=== PATIENT | male | born 1965 | race Caucasian/White ===

== ENCOUNTER 2018-05-05 20:08 | Inpatient (IN) ==
--- NOTE | 2018-05-05 20:35 | ED ---
HPI General Chief Complaint: Stroke Alert Stated Complaint: Facial Numbness/Trouble Walking/Lft Facial Swellin Time Seen by Provider: 05/05/18 20:25 Source: patient Mode of arrival: ambulatory Limitations: no limitations History of Present Illness HPI Narrative: 52-year-old male presents to the emergency department by private transportation for complaint of new onset left facial droop left arm weakness and ataxia of gait. According the patient he went to bed feeling well last evening around 9 or 9:30 PM having no similar complaints. Patient awakened approximate 8 AM this morning and noticed that he had some mild weakness of the left upper extremity and some difficulty with his balance, "running into things ", which is unusual for him. Patient denies any injury or fall. Patient does not recall any weakness of the left lower extremity or right lower extremity. Patient is diabetic and has noted his blood sugars to be elevated into the 320 range today. Patient has been compliant with his medications which includes Plavix and blood pressure cholesterol medication. Patient states he takes Plavix but does not know the indication. Patient also has stage III kidney disease. Patient states he has kidney abnormality. Patient states that he also has a indwelling nerve stimulator from severe arthritis. Patient has had no recent febrile illness denies chest pain palpitations near syncope syncope nausea vomiting visual disturbance headache altered mentation or difficulty with his speech. Patient is visiting from out of state. Patient has never been seen in this hospital system before. Patient has been compliant with his medications reportedly. No recent alcohol ingestion. Patient denies history of irregular heartbeat/atrial fibrillation. Patient is allergic to aspirin. Onset (ago): hour(s) Time: 08:00 Last Observed Normal: 21:31 Location: Reports left face, left arm and ataxia History of same: No Severity: mild Quality: Reports weak Relieving factors: none Exacerbating factors: none Context: Reports other (noted upon awakening 8 am this morning 'normal last night at bedtime 9-9:30 PM') On Anticoagulants: Yes (plvix, allergic to aspirin) Associated symptoms: Reports weakness (LUE); Denies confusion, chest pain, cough , diaphoresis, fever/chills, headaches, loss of appetite, malaise, nausea/ vomiting, vertigo, seizures, shortness of breath and syncope Treatments Prior to Arrival: Reports none; Denies Aspirin (allergic) Related Data Home Medications Medication Instructions Recorded Confirmed atorvastatin 80 mg PO DAILY 05/05/18 05/05/18 esomeprazole magnesium 40 mg PO DAILY 05/05/18 05/05/18 gabapentin 600 mg PO BID 05/05/18 05/05/18 losartan 50 mg PO DAILY 05/05/18 05/05/18 nortriptyline 25 mg PO BID 05/05/18 05/05/18 paroxetine HCl 20 mg PO DAILY 05/05/18 05/05/18 sertraline 50 mg PO DAILY 05/05/18 05/05/18 topiramate [Topamax] 50 mg PO BID 05/05/18 05/05/18 Allergies Allergy/AdvReac Type Severity Reaction Status Date / Time aspirin Allergy Severe Hives Verified 05/05/18 20:27 Penicillins Allergy Hives Verified 05/05/18 20:29 Sulfa (Sulfonamide Allergy Hives Verified 05/05/18 20:29 Antibiotics) alprazolam [From Xanax] AdvReac Agitation Verified 05/05/18 20:29 Review of Systems ROS: all other systems reviewed are negative PMFSH History History Provided By: Patient (Diabetes, hypertension, stage III kidney disease, dyslipidemia, nerve stimulator secondary to chronic arthritis) Social History Social History Substance History: No History of Abuse Smoking Status: Never smoker How Often Do You Have a Drink Containing Alcohol: Never Recent Travel in [facility] within the Last 8 Weeks: No Recent Out of Country Travel within the Last 8 Weeks: No Exam Narrative Exam Narrative: GENERAL: Well-developed well-nourished male no acute distress no respiratory distress mentation intact GCS 15 blood pressure 113/72 bedside glucose 494 SKIN: Focused skin assessment warm/dry. HEAD: Atraumatic. Normocephalic. EYES: Pupils equal and round. No scleral icterus. No injection or drainage. ENT: No nasal bleeding or discharge. Mucous membranes pink and moist. Airway is patent tongue is midline. NECK: Trachea midline. No JVD. No carotid bruits to auscultation CARDIOVASCULAR: Regular rate and rhythm. No murmur appreciated. RESPIRATORY: No accessory muscle use. Clear to auscultation. Breath sounds equal bilaterally. GASTROINTESTINAL: Abdomen soft, non-tender, nondistended. Hepatic and splenic margins not palpable. MUSCULOSKELETAL: No obvious deformities. No clubbing. No cyanosis. No edema. NEUROLOGICAL: Awake and alert. GCS 15 no obvious cranial nerve deficits except for left facial droop. Motor grossly within normal limits left upper extremity 4/5 motor strength otherwise right upper extremity bilateral extremities 5/5 motor strength. Sensory exam intact to light touch bilaterally. No pronator drift. Normal speech. PSYCHIATRIC: Appropriate mood and affect; insight and judgment normal. Course Consultations Consultation #1: stroke alert called and discussed with Dr Earl --if able to tolerate CTA w CKD ok otherwise will proceed with stat MRA nikolski of Cramer/ neck Initial Documented Vital Signs Temperature 98.2 F 05/05/18 20:34 Pulse Rate 74 05/05/18 20:34 Respiratory Rate 18 05/05/18 20:34 Blood Pressure 113/70 05/05/18 20:34 Pulse Oximetry 98 05/05/18 20:34 Last Documented Vital Signs Temperature 98.2 F 05/05/18 20:34 Pulse Rate 63 05/05/18 21:48 Respiratory Rate 18 05/05/18 21:48 Blood Pressure 133/70 05/05/18 21:48 Pulse Oximetry 100 05/05/18 21:48 NIH Stroke Scale NIH Stroke Scale Level of Consciousness: 0-Alert Orientation Questions: 0-Answers both correct Responds to Commands: 0-Both tasks correct Gaze Eye Movement: 0-Horizontal movement WNL Visual Quintero: 0-No visual field defect Facial Movement: 1-Minor facial palsy (left facial droop) Motor Functions Arm LEFT: 1-Drift before 10 seconds Motor Functions Arm RIGHT: 0-No drift Motor Functions Leg LEFT: 0-No drift Motor Functions Leg RIGHT: 0-No drift Limb Ataxia: 0-No ataxia Sensory Loss: 0-No sensory loss Best Language: 0-Normal Articulation: 0-Normal Extinction or Inattention Sensory: 0-Absent Total: 2 Medical Decision Making MDM Narrative Medical decision making narrative: @ 20:18 Stroke alert called as symptom onset still within 24 h window of onset (well outside tpa window, not candidate); @ 20 :[address] Earl @ 21:[address] 21:[address] Ealr; CTA pending --may receive SQ heparin 5000 u bid on plavix; recommends MRI in the AM At 9:20 PM family at bedside mother states that she noticed change in patient's appearance and balance disturbance today since 9:30 AM noting that she would have to assist him with ambulation at times. This was noted while patient was on road trip from [place] since yesterday. Brother who is also at bedside saw him for the first time this evening at 7 PM and noticed that he had facial droop and balance disturbance which is also new for him. NIHSS: 2 EKG: Normal sinus rhythm rate [address] elevation injury pattern or ectopy noted CT brain noncontrast: Negative per reading radiologist CTA brain noncontrast no acute process no proximal thrombus CTA carotids no acute abnormality Chest x-ray:No acute process CBC with automated differential within normal limits Metabolic panel remarkable for bicarb of 23 normal anion gap renal insufficiency with creatinine of 2.0 GFR 35 (in view of receiving Visipaque contrast patient was given bolus of 500 cc as well as had received bolus of 250 cc normal saline while in the CT due to initial blood pressure 113 mmHg and ongoing maintenance fluids at 70 cc/h) glucose 498; hyperglycemia addressed with a bolus of normal saline 1 L as well as insulin 10 units IV x1 with blood sugar monitoring every hour x2. Troponin I less than 0.02, not elevated; CK 83 not elevated Call placed to medicine service, [facility] , Dr Zayas Medical Screen Exam Complete: Yes Emergency Medical Condition: Yes Differential Diagnosis Differential Diagnosis: TIA CVA Grace's palsy arrhythmia cervical radiculopathy uncontrolled diabetes DKA dehydration UTI sepsis Medical Records Medical records reviewed: Yes I reviewed the patient's medical records. none prior Lab Data Lab results reviewed: Yes I reviewed the patient's lab results. Result diagrams: 05/05/18 20:25 05/05/18 20:25 Lab Results 05/05/18 05/05/18 05/05/18 Range/Units 20:21 20:25 20:25 CBC w Diff Auto diff final WBC 10.2 (4.0-11.0) th/mm3 RBC 5.07 (4.50-5.90) mil/mm3 Hgb 15.1 (13.0-17.0) gm/dL Hct 47.8 (39.0-51.0) % MCV 94.2 (80.0-100.0) fL MCH 29.8 (27.0-34.0) pg MCHC 31.6 L (32.0-36.0) % RDW 13.8 (11.6-17.2) % Plt Count 209 (150-450) th/mm3 MPV 10.0 (7.0-11.0) fL Neut % (Auto) 77.1 H (16.0-70.0) % Lymph % (Auto) 14.9 (9.0-44.0) % [place] % (Auto) 7.3 (0.0-8.0) % Eos % (Auto) 0.1 (0.0-4.0) % Baso % (Auto) 0.6 (0.0-2.0) % Neut # (Auto) 7.9 H (1.8-7.7) th/mm3 Lymph # (Auto) 1.5 (1.0-4.8) th/mm3 [place] # (Auto) 0.7 (0.0-0.9) th/mm3 Eos # (Auto) 0.0 (0.0-0.4) th/mm3 Baso # (Auto) 0.1 (0.0-0.2) th/mm3 WBC Differential . Differential Comment . PT (9.8-11.6) sec INR Ratio APTT (23.4-31.7) sec Fibrinogen (227-377) mg/dL Sodium (136-145) meq/L Potassium (3.5-5.1) meq/L Chloride (98-107) meq/L Carbon Dioxide (21.0-32.0) meq/L Anion Gap (5-15) meq/L BUN (7-18) mg/dL Creatinine Cancelled Estimated GFR Cancelled Random Glucose (74-106) mg/dL Calcium (8.5-10.1) mg/dL Total Creatine Kinase (39-308) U/L Troponin I (0.02-0.05) ng/mL Blood Type O Positive 05/05/18 05/05/18 05/05/18 Range/Units 20:25 20:25 20:25 CBC w Diff WBC (4.0-11.0) th/mm3 RBC (4.50-5.90) mil/mm3 Hgb (13.0-17.0) gm/dL Hct (39.0-51.0) % MCV (80.0-100.0) fL MCH (27.0-34.0) pg MCHC (32.0-36.0) % RDW (11.6-17.2) % Plt Count (150-450) th/mm3 MPV (7.0-11.0) fL Neut % (Auto) (16.0-70.0) % Lymph % (Auto) (9.0-44.0) % [place] % (Auto) (0.0-8.0) % Eos % (Auto) (0.0-4.0) % Baso % (Auto) (0.0-2.0) % Neut # (Auto) (1.8-7.7) th/mm3 Lymph # (Auto) (1.0-4.8) th/mm3 [place] # (Auto) (0.0-0.9) th/mm3 Eos # (Auto) (0.0-0.4) th/mm3 Baso # (Auto) (0.0-0.2) th/mm3 WBC Differential Differential Comment PT 10.0 (9.8-11.6) sec INR 1.0 Ratio APTT 29.1 (23.4-31.7) sec Fibrinogen 630 H (227-377) mg/dL Sodium 133 L (136-145) meq/L Potassium 3.6 (3.5-5.1) meq/L Chloride 101 (98-107) meq/L Carbon Dioxide 23.0 (21.0-32.0) meq/L Anion Gap 9 (5-15) meq/L BUN 14 (7-18) mg/dL Creatinine 2.00 H Estimated GFR 35 L Random Glucose 498 H* (74-106) mg/dL Calcium 7.9 L (8.5-10.1) mg/dL Total Creatine Kinase 83 (39-308) U/L Troponin I Less than 0.02 L (0.02-0.05) ng/mL Blood Type Imaging Data Radiologist's impression: Chest X-Ray 05/05/18 20:26 CONCLUSION: 1. No acute cardiopulmonary disease. Head CT 05/05/18 20:26 CONCLUSION: 1. No acute intracranial abnormality. Report was called by Dr. Barnett to Dr. Bland at 9:09 PM.] Head CTA 05/05/18 20:26 CONCLUSION: 1. Negative CTA of the head. Specifically, no evidence for large vessel occlusion. Report was called by Dr. Barnett to Dr. Earl at 9:26 PM.] Neck CTA 05/05/18 20:26 CONCLUSION: 1. No significant carotid or vertebral artery flow limiting lesion. ECG Data EKG Prior to Arrival: No Attestation: I personally reviewed and interpreted this ECG as follows: (EKG normal sinus rhythm rate [address] elevation injury pattern or ectopy noted ) Discharge Plan Discharge Disposition Patient Disposition: ED Admit(ED Internal Use Only) Discharge Condition Condition: Stable Discharge Details Diagnosis: Weakness, CVA (cerebral vascular accident), Type 2 diabetes mellitus with hyperglycemia, Chronic kidney disease (CKD) Physicians Team ED Provider: Temitope Bland Primary Care Provider: Primary Care Leah Fernandez Other Providers: Santosh Miranda Rxs /Orders / Referrals /Forms Prescriptions: No Action sertraline 50 mg Tablet 50 mg PO DAILY RF: 0 atorvastatin 80 mg Tablet 80 mg PO DAILY RF: 0 gabapentin 600 mg Tablet 600 mg PO BID RF: 0 paroxetine HCl 20 mg Tablet 20 mg PO DAILY RF: 0 topiramate [Topamax] 50 mg Tablet 50 mg PO BID RF: 0 losartan 50 mg Tablet 50 mg PO DAILY RF: 0 nortriptyline 25 mg Capsule 25 mg PO BID RF: 0 esomeprazole magnesium 40 mg Capsule,Delayed Release(Dr/Ec) 40 mg PO DAILY RF: 0 Status ED Status: With Doctor
--- NOTE | 2018-05-05 20:38 | XR ---
EXAM DATE: 05/05/2018 8:36 PM EST AGE/SEX: 52 years / Male INDICATIONS: Stroke alert. CLINICAL DATA: This is the patient's initial encounter. Patient reports that signs and symptoms have been present for 1 day and indicates a pain score of 0/10. MEDICAL/SURGICAL HISTORY: None. None. COMPARISON: No prior exams available for comparison. FINDINGS: No significant new focal pleural or parenchymal opacities. The cardiomediastinal contours are unremar kable. Osseous structures are intact. CONCLUSION: 1. No acute cardiopulmonary disease. Electronically signed by: Amando Falcon MD Board Certified Radiologist 05/05/2018 8:36 PM ANNEL T
[2018-05-05 20:52] LABS: Baso # (Auto) 0.1 th/mm3 (0.0-0.2); Baso % (Auto) 0.6 % (0.0-2.0); Eos % (Auto) 0.1 % (0.0-4.0); Hematocrit 47.8 % (39.0-51.0); Hemoglobin 15.1 gm/dL (13.0-17.0); Lymph # (Auto) 1.5 th/mm3 (1.0-4.8); Lymph % (Auto) 14.9 % (9.0-44.0); Mean Corpuscular HGB Conc 31.6 % (32.0-36.0); Mean Corpuscular Hemoglobin 29.8 pg (27.0-34.0); Mean Corpuscular Volume 94.2 fL (80.0-100.0); Mono # (Auto) 0.7 th/mm3 (0.0-0.9); Mono % (Auto) 7.3 % (0.0-8.0); Neut # (Auto) 7.9 th/mm3 (1.8-7.7); Neut % (Auto) 77.1 % (16.0-70.0); Platelet Count 209 th/mm3 (150-450); Red Blood Count 5.07 mil/mm3 (4.50-5.90); Red Cell Distribution Width 13.8 % (11.6-17.2); White Blood Count 10.2 th/mm3 (4.0-11.0)
[2018-05-05 20:54] LABS: Potassium 3.6 meq/L (3.5-5.1)
[2018-05-05 20:56] LABS: Calcium 7.9 mg/dL (8.5-10.1)
[2018-05-05] MEDS ORDERED: Sodium Chlor 0.9% Inj 250 ML IV.SIG SCH (21:00)
[2018-05-05 21:04] LABS: Activated Partial Thrombo Time 29.1 sec (23.4-31.7)
[2018-05-05 21:08] LABS: Creatine Kinase 83 U/L (39-308)
--- NOTE | 2018-05-05 21:11 | CT ---
EXAM DATE: 05/05/2018 9:08 PM EST AGE/SEX: 52 years / Male INDICATIONS: Stroke alert. CLINICAL DATA: This is the patient's initial encounter. Patient reports that signs and symptoms have been present for 1 day and indicates a pain score of Nonresponsive. MEDICAL/SURGICAL HISTORY: . . RADIATION DOSE: 43.03 CTDI (mGy) COMPARISON: No prior exams available for comparison. TECHNIQUE: CT of the head without contrast. Using automated exposure control and adjustment of the mA and/or kV according to patient size, radiation dose was kept as low as reasonably achievable to ob tain optimal diagnostic quality images. DICOM format image data is available electronically for revi ew and comparison. FINDINGS: Cerebrum: Mild diffuse cerebral atrophy. The ventricles are normal for degree of atrophy. No evidenc e of midline shift, mass lesion, hemorrhage or acute infarction. No extraaxial fluid collections are seen. Posterior Fossa: The cerebellum and brainstem are intact. The 4th ventricle is midline. The cerebe llopontine angle is unremarkable. Extracranial: The visualized portion of the orbits is intact. Skull: The calvaria is intact. No evidence of skull fracture. CONCLUSION: 1. No acute intracranial abnormality. Report was called by Dr. Barnett to Dr. Bland at 9:09 PM.] Electronically signed by: Amando Falcon MD Board Certified Radiologist 05/05/2018 9:10 PM ANNEL Cowan
--- NOTE | 2018-05-05 21:28 | CT ---
EXAM DATE: 05/05/2018 9:21 PM EST AGE/SEX: 52 years / Male INDICATIONS: STROKE ALERT. CLINICAL DATA: This is the patient's initial encounter. Patient reports that signs and symptoms have been present for 1 day and indicates a pain score of Nonresponsive. MEDICAL/SURGICAL HISTORY: . . RADIATION DOSE: 43.03 CTDI (mGy) COMPARISON: [facility], CT HEAD W/O CONTRAST, 05/05/2018. . TECHNIQUE: Volumetric scanning was performed using a multi-row detector CT scanner during bolus infu faye of 75 ml Visipaque 320 (iodixanol) nonionic water-soluble contrast as a cumulative dose for mul tiple exams. The data was post processed with a variety of visualization algorithms including full volume maximum intensity projection, multi-planar sliding thin slab reformation, curved planar reform ation, and surface rendering techniques. Using automated exposure control and adjustment of the mA a nd/or kV according to patient size, radiation dose was kept as low as reasonably achievable to obtain optimal diagnostic quality images. DICOM format image data is available electronically for review a nd comparison. FINDINGS: There is excellent visualization of the major intracranial arteries out to the second-order branch ve ssels. There is no evidence for aneurysm, vessel truncation or stenosis, and no evidence for vascula r malformation. CONCLUSION: 1. Negative CTA of the head. Specifically, no evidence for large vessel occlusion. Report was called by Dr. Barnett to Dr. Earl at 9:26 PM.] Electronically signed by: Amando Falcon MD Board Certified Radiologist 05/05/2018 9:27 PM ANNEL Cowan
--- NOTE | 2018-05-05 21:40 | CT ---
EXAM DATE: 05/05/2018 9:37 PM EST AGE/SEX: 52 years / Male INDICATIONS: Stroke alert. CLINICAL DATA: This is the patient's initial encounter. Patient reports that signs and symptoms have been present for 1 day and indicates a pain score of Nonresponsive. MEDICAL/SURGICAL HISTORY: . . RADIATION DOSE: 43.03 CTDI (mGy) COMPARISON: No prior exams available for comparison. TECHNIQUE: Volumetric scanning was performed using a multirow detector CT scanner during bolus infus ion of 75 ml Visipaque 320 (iodixanol) nonionic water-soluble contrast as a cumulative dose for mult iple exams. The data was postprocessed with a variety of visualization algorithms including full-vo lume maximum intensity projection, multiplanar sliding thin-slab reformation, curved-planar reformati on, and surface-rendering techniques. Using automated exposure control and adjustment of the mA and/ or kV according to patient size, radiation dose was kept as low as reasonably achievable to obtain op timal diagnostic quality images. DICOM format image data is available electronically for review and comparison. Percent stenosis is calculated using the diameter of the stenotic region over the diameter of the nor mal distal internal carotid artery. FINDINGS: Aortic Arch: There is a three-vessel origin of the great vessels from the aorta. No evidence of ost ial narrowing Right Carotid: The common carotid artery is intact. The carotid bulb has a normal configuration wit hout ulceration or narrowing. The internal carotid artery lumen is smooth without stenosis. The ext ernal carotid artery is intact. Left Carotid: The common carotid artery is intact. The carotid bulb has a normal configuration with out ulceration or narrowing. The internal carotid artery lumen is smooth without stenosis. The exte rnal carotid artery is intact. Vertebrals: The vertebral arteries have a symmetric diameter. No stenotic lesions are seen. General Findings: Lung apices are clear. Thyroid is unremarkable by CT. No significant adenopathy. CONCLUSION: 1. No significant carotid or vertebral artery flow limiting lesion. Electronically signed by: Amando Falcon MD Board Certified Radiologist 05/05/2018 9:39 PM ANNEL Cowan
[2018-05-05] MEDS ORDERED: Sod Chloride 0.9% Inj 1,000 ML IV.SIG SCH (21:45)
[2018-05-05] MEDS: Sod Chloride 0.9% Inj 1,000 ML IV.CONT SCH ×2 (21:46→23:47)
[2018-05-05] MEDS ORDERED: Sodium Chlor 0.9% Inj 500 ML IV.SIG SCH (22:00)
[2018-05-05] MEDS ORDERED: Dextrose 50% in Water 50 ML Vial IV.PUSH PRN (22:12)
[2018-05-05 22:54] LABS: Bilirubin,Urine Negative (Negative); Clarity,Urine Clear (Clear); Color,Urine Yellow (Yellw/Straw); Leukocyte Esterase,Urine Negative (Negative); Nitrite,Urine Negative (Negative); PH,Urine 6.5 (5.0-8.5); Urobilinogen,Urine 0.2 mg/dL (Less than 2)
[2018-05-05 23:51] LABS: RBC,Urine 0-3 /hpf (0-3); Squamous Epithelial Cell,Urine 0-5 /hpf (0-5)
[2018-05-06] MEDS: Sod Chloride 0.9% Inj 1,000 ML IV.CONT SCH ×4 (00:20→13:30)
[2018-05-06 08:09] LABS: Amphetamine Screen,Urine Neg (Neg); Barbiturate Screen,Urine Neg (Neg); Cannabinoid Screen,Urine Neg (Neg); Cocaine Screen,Urine Neg (Neg)
--- NOTE | 2018-05-06 08:15 | P.CONNEU ---
History of Present Illness Service: Neurology Primary Care Provider: No Primary Care Physician Chief Complaint: Stroke History of Present Illness: 52-year-old male admitted for possible stroke. Having symptoms of left facial weakness and left-sided weakness and gait imbalance for a couple of days. He is traveling from [place], that is where he gets his health care. Glucose is noted to be greater than 400 in the ER. Denies any history of previous TIA or stroke. No head or neck trauma. EKG: Normal sinus rhythm rate [address] elevation injury pattern or ectopy noted CT brain noncontrast: Negative per reading radiologist CTA brain noncontrast no acute process no proximal thrombus CTA carotids no acute abnormality Review of Systems All other systems reviewed negative except as stated in HPI [facility] - History History Provided By: Patient - Tobacco History Second Hand Smoke Exposure: No Smoking Status: Never smoker - Alcohol History How Often Do You Have a Drink Containing Alcohol: Never - Substance Use History Substance History: No History of Abuse - Travel History Recent Travel in the [facility] Within the Last 8 Weeks: No Recent Travel Out of the Country Within the Last 8 Weeks: No - Immunization History Tetanus Immunization: <5 Years Hx Influenza Vaccine This Season: Yes Medications and Allergies Active Medications: Active Medications Atorvastatin Calcium (Lipitor) 10 mg PO HS RAMSES Dextrose (D50w Vial) 50 ml IV.PUSH UNSCH PRN PRN Reason: PER HYPOGLYCEMIA PROTOCOL Enalaprilat (Vasotec Inj) 1.25 mg IV.PUSH Q4H PRN PRN Reason: For SBP > 220 or DBP > 120 Glucagon (Glucagon Inj) 1 mg OTHER PRN PRN PRN Reason: for Hypoglycemia Protocol Glucagon (Glucagon Inj) 1 mg OTHER UNSCH PRN PRN Reason: for Hypoglycemia Protocol Sodium Chloride (Ns Inj) 1,000 mls @ 70 mls/hr IV.CONT .[id number] [facility] Last Admin: 05/05/18 21:46 Dose: 70 mls/hr Sodium Chloride (Ns Inj) 1,000 mls @ 70 mls/hr IV.CONT .[id number] [facility] Last Admin: 05/06/18 00:20 Dose: 70 mls/hr Sodium Chloride (Ns Inj) 1,000 mls @ 70 mls/hr IV.CONT .[id number] [facility] Last Admin: 05/05/18 23:47 Dose: 70 mls/hr Insulin Aspart (Novolog Insulin Correctional Sugar Inj) 0 unit SQ ACHS RAMSES; Protocol Sodium Chloride (Ns Flush) 2 ml IV.FLUSH BID RAMSES Sodium Chloride (Ns Flush) 2 ml IV.FLUSH PRN PRN PRN Reason: FLUSH AFTER USING IV ACCESS Allergies Allergy/AdvReac Type Severity Reaction Status Date / Time aspirin Allergy Severe Hives Verified 05/05/18 20:27 Penicillins Allergy Hives Verified 05/05/18 20:29 Sulfa (Sulfonamide Allergy Hives Verified 05/05/18 20:29 Antibiotics) alprazolam [From Xanax] AdvReac Agitation Verified 05/05/18 20:29 Home Medications Medication Instructions Recorded Confirmed Type atorvastatin 80 mg PO DAILY 05/05/18 05/05/18 History esomeprazole magnesium 40 mg PO DAILY 05/05/18 05/05/18 History gabapentin 600 mg PO BID 05/05/18 05/05/18 History losartan 50 mg PO DAILY 05/05/18 05/05/18 History nortriptyline 25 mg PO BID 05/05/18 05/05/18 History paroxetine HCl 20 mg PO DAILY 05/05/18 05/05/18 History sertraline 50 mg PO DAILY 05/05/18 05/05/18 History topiramate [Topamax] 50 mg PO BID 05/05/18 05/05/18 History Exam Vital signs: Vital Signs 05/05/18 20:34 05/05/18 20:39 05/05/18 21:48 Temperature 98.2 F Pulse Rate 74 74 63 Respiratory Rate 18 18 Blood Pressure 113/70 133/70 Pulse Oximetry 98 100 05/06/18 00:00 05/06/18 02:09 05/06/18 04:00 Temperature 98.5 F 98.1 F Pulse Rate 73 76 83 Respiratory Rate 20 20 Blood Pressure 150/95 H 141/82 H Pulse Oximetry 99 96 05/06/18 07:57 Temperature 98.3 F Pulse Rate 81 Respiratory Rate 20 Blood Pressure 141/94 H Pulse Oximetry 94 L Intake & Output 05/05/18 05/06/18 05/06/18 18:59 06:59 18:59 Intake Total 1870 / 1870 Output Total 550 / 550 Balance 1870 / 1870 -550 / -550 Weight 108.6 kg Intake: IV 1750 / 1750 NS Inj 1,000 ML @ 1000 mls/hr 1000 / 1000 IV.SIG BOLUS RAMSES Rx#:[id number] NS Inj 250 ML @ 500 mls/hr IV. 250 / 250 SIG BOLUS RAMSES Rx#:[id number] NS Inj 500 ML @ 1000 mls/hr IV. 500 / 500 SIG BOLUS RAMSES Rx#:[id number] Oral 120 / 120 Output: Urine 550 / 550 Other: Weight On Admission 106.633 kg Narrative: GENERAL: in NAD, mildly obese SKIN: Warm and dry. HEAD: Atraumatic. Normocephalic. EYES: Pupils equal and round. No scleral icterus. ENT: No nasal bleeding or discharge. Mucous membranes pink and moist. NECK: Trachea midline. No JVD. RESPIRATORY: No accessory muscle use. GASTROINTESTINAL: Abdomen soft, non-tender, nondistended. MUSCULOSKELETAL: Extremities without clubbing, cyanosis, or edema. No obvious deformities. NEUROLOGICAL: Awake and alert. Oriented x3 no aphasia, fluent articulate, mild reduced left nasolabial fold slight left lower facial weakness Eomi, VFF, minimal drift left upper extremity with mild left upper extremity dystaxia motor grossly within normal limits. Five out of 5 muscle strength in the arms and legs. Tone normal in all 4 limbs, reduced pain in his legs gait not assessed secondary fall risk PSYCHIATRIC: Appropriate mood and affect; insight and judgment normal. - Constitutional no acute distress - Routine HEENT Exam Head: Present: normocephalic Results - Labs CBC & Chem 7: 05/05/18 20:25 05/05/18 20:25 Labs: Laboratory Results - last 24 hr 05/05/18 05/05/18 05/05/18 20:21 20:25 20:25 CBC w Diff Auto diff final WBC 10.2 RBC 5.07 Hgb 15.1 Hct 47.8 MCV 94.2 MCH 29.8 MCHC 31.6 L RDW 13.8 Plt Count 209 MPV 10.0 Neut % (Auto) 77.1 H Lymph % (Auto) 14.9 Terry % (Auto) 7.3 Eos % (Auto) 0.1 Baso % (Auto) 0.6 Neut # (Auto) 7.9 H Lymph # (Auto) 1.5 Terry # (Auto) 0.7 Eos # (Auto) 0.0 Baso # (Auto) 0.1 WBC Differential . Differential Comment . PT INR APTT Fibrinogen Sodium Potassium Chloride Carbon Dioxide Anion Gap BUN Creatinine Cancelled Estimated GFR Cancelled POC Glucose Random Glucose Calcium Total Creatine Kinase Troponin I Urine Color Urine Clarity Urine pH Ur Specific [place] Urine Protein Urine Glucose (UA) Urine Ketones Urine Occult Blood Urine Nitrate Urine Bilirubin Urine Urobilinogen Ur Leukocyte Esterase Urine RBC Ur Squamous Epith Cells Micro UA Comment Ur Microscopic Review Urine Culture Comments Ur Barbiturates Screen Ur Amphetamines Screen U Benzodiazepines Scrn Urine Cocaine Screen U Cannabinoids Screen Blood Type O Positive Antibody Screen Negative 05/05/18 05/05/18 05/05/18 20:25 20:25 20:25 CBC w Diff WBC RBC Hgb Hct MCV MCH MCHC RDW Plt Count MPV Neut % (Auto) Lymph % (Auto) Terry % (Auto) Eos % (Auto) Baso % (Auto) Neut # (Auto) Lymph # (Auto) Terry # (Auto) Eos # (Auto) Baso # (Auto) WBC Differential Differential Comment PT 10.0 INR 1.0 APTT 29.1 Fibrinogen 630 H Sodium 133 L Potassium 3.6 Chloride 101 Carbon Dioxide 23.0 Anion Gap 9 BUN 14 Creatinine 2.00 H Estimated GFR 35 L POC Glucose Random Glucose 498 H* Calcium 7.9 L Total Creatine Kinase 83 Troponin I Less than 0.02 L Urine Color Urine Clarity Urine pH Ur Specific [place] Urine Protein Urine Glucose (UA) Urine Ketones Urine Occult Blood Urine Nitrate Urine Bilirubin Urine Urobilinogen Ur Leukocyte Esterase Urine RBC Ur Squamous Epith Cells Micro UA Comment Ur Microscopic Review Urine Culture Comments Ur Barbiturates Screen Ur Amphetamines Screen U Benzodiazepines Scrn Urine Cocaine Screen U Cannabinoids Screen Blood Type Antibody Screen 05/05/18 05/06/18 05/06/18 22:43 00:12 07:00 CBC w Diff WBC RBC Hgb Hct MCV MCH MCHC RDW Plt Count MPV Neut % (Auto) Lymph % (Auto) Terry % (Auto) Eos % (Auto) Baso % (Auto) Neut # (Auto) Lymph # (Auto) Terry # (Auto) Eos # (Auto) Baso # (Auto) WBC Differential Differential Comment PT INR APTT Fibrinogen Sodium Potassium Chloride Carbon Dioxide Anion Gap BUN Creatinine Estimated GFR POC Glucose 172 H Random Glucose Calcium Total Creatine Kinase Troponin I Urine Color Yellow Urine Clarity Clear Urine pH 6.5 Ur Specific [place] 1.010 Urine Protein 100 H Urine Glucose (UA) 1000 or greater H Urine Ketones Negative Urine Occult Blood Negative Urine Nitrate Negative Urine Bilirubin Negative Urine Urobilinogen 0.2 Ur Leukocyte Esterase Negative Urine RBC 0-3 Ur Squamous Epith Cells 0-5 Micro UA Comment Culture not ind Ur Microscopic Review Microscopic reviewed Urine Culture Comments Culture not ind Ur Barbiturates Screen Neg Ur Amphetamines Screen Neg U Benzodiazepines Scrn Neg Urine Cocaine Screen Neg U Cannabinoids Screen Neg Blood Type Antibody Screen - Imaging Impressions Chest X-Ray 05/05/18 20:26 CONCLUSION: 1. No acute cardiopulmonary disease. Head CT 05/05/18 20:26 CONCLUSION: 1. No acute intracranial abnormality. Report was called by Dr. Barnett to Dr. Bland at 9:09 PM.] Head CTA 05/05/18 20:26 CONCLUSION: 1. Negative CTA of the head. Specifically, no evidence for large vessel occlusion. Report was called by Dr. Barnett to Dr. Earl at 9:26 PM.] Neck CTA 05/05/18 20:26 CONCLUSION: 1. No significant carotid or vertebral artery flow limiting lesion. Review/Management - Diagnosis (1) Stroke Code(s): I63.9 - Cerebral infarction, unspecified Status: Acute Current Visit: Yes (2) Weakness Code(s): R53.1 - Weakness Status: Acute Current Visit: Yes (3) Type 2 diabetes mellitus with hyperglycemia Code(s): E11.65 - Type 2 diabetes mellitus with hyperglycemia Status: Acute Current Visit: Yes (4) Chronic kidney disease (CKD) Code(s): N18.9 - Chronic kidney disease, unspecified Status: Acute Current Visit: Yes - Review/Management Plan: Probable tiny cortical spinal tract infarct versus resolving TIA Mild left facial weakness left upper extremity paresis dystaxia. Would localize to right subcortical or upper brainstem Risk factors include diabetes hypertension Recommendations MRI brain Plavix 2D echo Statin therapy for LDL 70 or less; lipids in good range. HbA1c pending PT evaluation He should get an event monitor see a machine precision engraver when he gets back to [place] Discharge planning once cleared by therapy I have no significant abnormality on echo Behavioral modification and risk factor reduction. Weight loss, blood pressure control, blood sugar control, lipid control. 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
[2018-05-06 08:21] LABS: Opiate Screen,Urine Neg (Neg)
[2018-05-06 09:05] LABS: Chol/HDL Ratio 2.72 Ratio; HDL Cholesterol 52.8 mg/dL (40.0-60.0)
[2018-05-06 09:30] LABS: Hemoglobin A1c 12.1 % (4.3-6.0)
--- NOTE | 2018-05-06 10:15 | P.HPIM ---
History of Present Illness Primary Care Physician: No Primary Care Physician History of Present Illness: 52-yo M traveling from [place], with pmhx of DM2, CKD,severe arthritis with lower back nerve stimulator,HTN,Hyperlipidemia who presented to ER for evaluation of left facial weakness, and lt arm weakness and difficulty balance which he noted on waking up yesterday morning.He reportedly was running into things. No weakness in his legs. No changes in his speech or visual symptoms. Patient also reports lt nasal pimple for 2-3 days, associated with swelling on lower side of left face, and mild pain. No fever or chills. no discharge. No palpitations, dizziness,lightheadedness. He notes his blood sugar was high in 300's at home. He is on Insulin but does not know which type or his dose. He reports compliance to all his usual medication. ROS is negative except as stated above. On presentation in ER VSS, labs unremarkable except for mild hyponatremia, hyperglycemia 498mg/dl, Cr 2(has CKD). urine tox negative. CT head and CTA head/ neck all negative. Neurology consulted overnight. PSHX-H/o nerve stimulator insertion in the back. Family hx-father had CAD,CHF,DM. H/o Kidney disease in family. Diagnosis (1) Stroke: (2) Weakness: (3) Type 2 diabetes mellitus with hyperglycemia: (4) Chronic kidney disease (CKD): Inpatient Certification Inpatient Certification: I certify that the inpatient services were ordered in accordance with Medicare regulations governing the order. This includes certification that hospital inpatient services are reasonable and necessary and in the case of services not specified as inpatient-only under 42 CFR 419.22(n), that they are appropriately provided as inpatient services in accordance to with the 2-midnight benchmark under 43 CFR 412.3(e) Estimated Total Length of Stay (Days): 2 Plans for Post Hospital Care: Not yet determined Review of Systems Review of Systems: all other systems reviewed are negative [facility] Social History Social History Substance History: No History of Abuse Second Hand Smoke Exposure: No Smoking Status: Never smoker How Often Do You Have a Drink Containing Alcohol: Never Recent Travel in [facility] within the Last 8 Weeks: No Recent Out of Country Travel within the Last 8 Weeks: No Immunization History Tetanus Immunization: <5 Years Hx Influenza Vaccine This Season: Yes Medications and Allergies Allergies Allergy/AdvReac Type Severity Reaction Status Date / Time aspirin Allergy Severe Hives Verified 05/05/18 20:27 Penicillins Allergy Hives Verified 05/05/18 20:29 Sulfa (Sulfonamide Allergy Hives Verified 05/05/18 20:29 Antibiotics) alprazolam [From Xanax] AdvReac Agitation Verified 05/05/18 20:29 Home Medications Medication Instructions Recorded Confirmed Type atorvastatin 80 mg PO DAILY 05/05/18 05/05/18 History esomeprazole magnesium 40 mg PO DAILY 05/05/18 05/05/18 History gabapentin 600 mg PO BID 05/05/18 05/05/18 History losartan 50 mg PO DAILY 05/05/18 05/05/18 History nortriptyline 25 mg PO BID 05/05/18 05/05/18 History paroxetine HCl 20 mg PO DAILY 05/05/18 05/05/18 History sertraline 50 mg PO DAILY 05/05/18 05/05/18 History topiramate [Topamax] 50 mg PO BID 05/05/18 05/05/18 History Active Medications: Active Medications Atorvastatin Calcium (Lipitor) 10 mg PO HS RAMSES Dextrose (D50w Vial) 50 ml IV.PUSH UNSCH PRN PRN Reason: PER HYPOGLYCEMIA PROTOCOL Enalaprilat (Vasotec Inj) 1.25 mg IV.PUSH Q4H PRN PRN Reason: For SBP > 220 or DBP > 120 Glucagon (Glucagon Inj) 1 mg OTHER PRN PRN PRN Reason: for Hypoglycemia Protocol Glucagon (Glucagon Inj) 1 mg OTHER UNSCH PRN PRN Reason: for Hypoglycemia Protocol Sodium Chloride (Ns Inj) 1,000 mls @ 70 mls/hr IV.CONT .[id number] [facility] Last Admin: 05/05/18 21:46 Dose: 70 mls/hr Sodium Chloride (Ns Inj) 1,000 mls @ 70 mls/hr IV.CONT .[id number] [facility] Last Admin: 05/06/18 00:20 Dose: 70 mls/hr Sodium Chloride (Ns Inj) 1,000 mls @ 70 mls/hr IV.CONT .[id number] [facility] Last Admin: 05/05/18 23:47 Dose: 70 mls/hr Insulin Aspart (Novolog Insulin Correctional Sugar Inj) 0 unit SQ ACHS RAMSES; Protocol Sodium Chloride (Ns Flush) 2 ml IV.FLUSH BID RAMSES Sodium Chloride (Ns Flush) 2 ml IV.FLUSH PRN PRN PRN Reason: FLUSH AFTER USING IV ACCESS Physical Exam Vital signs: Last Vital Signs Temp 98.3 F 05/06/18 07:57 Pulse 81 05/06/18 07:57 Resp 20 05/06/18 07:57 BP 141/94 H 05/06/18 07:57 Pulse Ox 94 L 05/06/18 07:57 Intake & Output 05/04/18 05/05/18 05/06/18 05/07/18 06:59 06:59 06:59 06:59 Intake Total 1869 Output Total 550 / 550 Balance 1869 -550 / -550 Weight 108.6 kg Narrative: GENERAL: middle aged man, obese, in no distress. HEENT:not pale,anicteric,[place], lt nare with pupule at base, no discharge noted , tenderness lt kun nasal area and upper lip area. mild lt lower facial swelling. CARDIOVASCULAR: Regular rate and rhythm without murmurs, gallops, or rubs. RESPIRATORY: Clear to auscultation. Breath sounds equal bilaterally. No wheezes , rales, or rhonchi. GASTROINTESTINAL: Abdomen soft, non-tender, nondistended. Normal active bowel sounds MUSCULOSKELETAL: Extremities without clubbing, cyanosis, or edema. NEURO: Alert & Oriented x4 to person, place, time, situation.Speech fluent. No facial droop, no pronator drift. Moves all ext x4 motor 5/5, Results Labs CBC & Chem 7: 05/05/18 20:25 05/05/18 20:25 Imaging Impressions Chest X-Ray 05/05/18 20:26 CONCLUSION: 1. No acute cardiopulmonary disease. Head CT 05/05/18 20:26 CONCLUSION: 1. No acute intracranial abnormality. Report was called by Dr. Barnett to Dr. Bland at 9:09 PM.] Head CTA 05/05/18 20:26 CONCLUSION: 1. Negative CTA of the head. Specifically, no evidence for large vessel occlusion. Report was called by Dr. Barnett to Dr. Earl at 9:26 PM.] Neck CTA 12/21/18 20:26 CONCLUSION: 1. No significant carotid or vertebral artery flow limiting lesion. Caprini VTE Risk Assessment Caprini VTE Risk Assessment: Moderate/High Risk (score >= 2) Caprini Risk Assessment Model: Point Value = 1 Point Value = 2 Point Value = 3 Point Value = 5 Age 41-60 Minor surgery BMI > 25 kg/m2 Swollen legs Varicose veins or History of unexplained or recurrent spontaneous Oral contraceptives or hormone replacement Sepsis (< 1 month) Serious lung disease, including pneumonia (< 1 month) Abnormal pulmonary function Acute myocardial infarction Congestive heart failure (< 1 month) History of inflammatory bowel disease Medical patient at bed rest Age 61-74 Arthroscopic surgery Major open surgery (> 45 min) Laparoscopic surgery (> 45 min) Malignancy Confined to bed (> 72 hours) Immobilizing plaster cast Central venous access Age >= 75 History of VTE Family history of VTE Factor V Leiden Prothrombin [id number] Lupus anticoagulant Anticardiolipin antibodies Elevated serum homocysteine Heparin-induced thrombocytopenia Other congenital or acquired thrombophilia Stroke (< 1 month) Elective arthroplasty Hip, pelvis, or leg fracture Acute spinal cord injury (< 1 month) Prophylaxis Regimen: Total Risk Factor Score Risk Level Prophylaxis Regimen 0-1 Low Early ambulation 2 Moderate Order ONE of the following: *Sequential Compression Device (SCD) *Heparin 5000 units SQ BID 3-4 Higher Order ONE of the following medications: *Heparin 5000 units SQ TID *Enoxaparin/Lovenox 40 mg SQ daily (WT < 150 kg, CrCl > 30 mL/min) *Enoxaparin/Lovenox 30 mg SQ daily (WT < 150 kg, CrCl > 10-29 mL/min) *Enoxaparin/Lovenox 30 mg SQ BID (WT < 150 kg, CrCl > 30 mL/min) AND/OR *Sequential Compression Device (SCD) 5 or more Highest Order ONE of the following medications: *Heparin 5000 units SQ TID (Preferred with Epidurals) *Enoxaparin/Lovenox 40 mg SQ daily (WT < 150 kg, CrCl > 30 mL/min) *Enoxaparin/Lovenox 30 mg SQ daily (WT < 150 kg, CrCl > 10-29 mL/min) *Enoxaparin/Lovenox 30 mg SQ BID (WT < 150 kg, CrCl > 30 mL/min) AND *Sequential Compression Device (SCD) Assessment and Plan (1) Stroke: Code(s): I63.9 - Cerebral infarction, unspecified Status: Acute (2) Weakness: Code(s): R53.1 - Weakness Status: Acute (3) Type 2 diabetes mellitus with hyperglycemia: Code(s): E11.65 - Type 2 diabetes mellitus with hyperglycemia Status: Acute (4) Chronic kidney disease (CKD): Code(s): N18.9 - Chronic kidney disease, unspecified Status: Acute Plan 52-yo M traveling from [place], with pmhx of DM2,CKD,severe arthritis with lower back nerve stimulator,HTN,Hyperlipidemia who presented to the ER for evaluation of possible stroke after having a couple of days lt sided lower facial weakness, left side weakness and gait imbalance. - Seems to be symptomatically improving. likely may have been TIA. negative CT head/CTA head/neck. Appreciate neurology recs-cont Plavix, obtain 2D echo, PT/OT. MRI brain was ordered--patient says he cannot do MRI since he has a nerve stimulator. LDL within acceptable limits. continue Statin. Lt nasal papule with mild lower facial cellulitis--started on Doxycycline PO Uncontrolled DM 2-- A1C 12.1% blood glucose in 200's range today, patient does not know his home insulin regimen, his will bring it in today. keep on sliding scale for now. DM diet. HTN-Uncontrolled, home medication resumed, adjust to maintain BP <130/80. CKD III-monitor cr, avoid nephrotoxins. DVT ppx-sq heparin. H&P: Quality VTE Deep Vein Thrombosis/Pulmonary Embolism Present on Admission: No _ (1) Type 2 diabetes mellitus with hyperglycemia Qualifiers: Diabetes mellitus termite helper insulin use: with termite helper use Qualified Code(s) : E11.65 - Type 2 diabetes mellitus with hyperglycemia; Z79.4 - residential ( current) use of insulin (2) Chronic kidney disease (CKD) Qualifiers: Chronic kidney disease stage: stage 3 (moderate) Qualified Code(s): N18.3 - Chronic kidney disease, stage 3 (moderate) (3) Stroke Qualifiers: CVA mechanism: Laterality of affected vessel: Precerebral and cerebral artery:
[2018-05-06] MEDS: Insulin NovoLOG Aspart Correctional Sugar Inj SQ SCH ×4 (12:02→23:14)
[2018-05-06] MEDS: Heparin - SQ 10,000 UNITS/ML Vial SQ SCH ×2 (18:40→23:06)
[2018-05-06] MEDS ORDERED: Acetaminophen 325 MG Tablet PO PRN (22:48)
[2018-05-07] MEDS: Heparin - SQ 10,000 UNITS/ML Vial SQ SCH (05:12)
[2018-05-07] MEDS: Insulin NovoLOG Aspart Correctional Sugar Inj SQ SCH ×2 (09:22→12:10)
[2018-05-07] MEDS: hydrALAZINE 50 MG Tablet PO SCH ×2 (09:22→12:10)
--- NOTE | 2018-05-07 10:29 | ECHRPT ---
Indication: cva/tia CONCLUSIONS The left ventricular systolic function is normal with an estimated ejection fraction in the range of 55-60%. Doppler parameters are consistent with impaired left ventricular relaxtion (grade 1 diastolic dysfun ction). The right ventricle is mildly dilated. The right ventricular systoilc function is normal. Trace mitral valve regurgitation. There is trace tricuspid valve regurgitation. BP: / HR: Rhythm: MEASUREMENTS (Male / Female) Normal Values Technical Quality: 2D ECHO LV Diastolic Diameter PLAX 4.5 cm 4.2 - 5.9 / 3.9 - 5.3 cm LV Systolic Diameter PLAX 3.4 cm IVS Diastolic Thickness 1.1 cm 0.6 - 1.0 / 0.6 - 0.9 cm LVPW Diastolic Thickness 1.1 cm 0.6 - 1.0 / 0.6 - 0.9 cm LV Relative Wall Thickness 0.5 RV Internal Dim ED PLAX 2.7 cm LVOT Diameter 2.4 cm Aortic Root Diameter 3.3 cm LA Systolic Diameter LX 3.3 cm 3.0 - 4.0 / 2.7 - 3.8 cm LV Ejection Fraction MOD 4C 58.8 % LV Ejection Fraction 4C AL 59.8 % M-MODE Aortic Root Diameter MM 3.8 cm LA Systolic Diameter MM 3.5 cm LA Ao Ratio MM 0.9 AV Cusp Separation MM 2.1 cm DOPPLER AV Peak Velocity 136.0 cm/s AV Peak Gradient 7.4 mmHg LVOT Peak Velocity 103.0 cm/s LVOT Peak Gradient 4.2 mmHg AV Area Cont Eq pk 3.4 cm Mitral E Point Velocity 54.8 cm/s Mitral A Point Velocity 76.0 cm/s Mitral E to A Ratio 0.7 LV E' Lateral Velocity 8.7 cm/s Mitral E to LV E' Lateral Ratio 6.3 LV E' Septal Velocity 6.5 cm/s Mitral E to LV E' Septal Ratio 8.4 TR Peak Velocity 281.0 cm/s TR Peak Gradient 31.6 mmHg Right Atrial Pressure 10.0 mmHg Pulmonary Artery Systolic Pressu 41.6 mmHg Right Ventricular Systolic Press 41.6 mmHg PV Peak Velocity 133.0 cm/s PV Peak Gradient 7.1 mmHg FINDINGS LEFT VENTRICLE Normal left ventricular size. Wall thickness is normal. The left ventricular systolic function is normal with an estimated ejection fraction in the range of 55-60%. Doppler parameters are consistent with impaired left ventricular relaxtion (grade 1 diastolic dysfun ction). RIGHT VENTRICLE The right ventricle is mildly dilated. The right ventricular systoilc function is normal. LEFT ATRIUM The left atrial size is normal. RIGHT ATRIUM The right atrial size is normal. ATRIAL SEPTUM Normal atrial septal thickness. AORTA The aortic root and proximal ascending aorta are normal in size on limited imaging. MITRAL VALVE Structurally normal mitral valve. Trace mitral valve regurgitation. No mitral valve stenosis. AORTIC VALVE Trileaflet aortic valve. No aortic valve stenosis or regurgitation. TRICUSPID VALVE Structurally normal tricuspid valve. There is trace tricuspid valve regurgitation. The estimated pulmonary arterial pressure is 42 mmHg. PERICARDIUM No pericardial effusion. Stanley Sanders DO (Electronically Signed) Final Date:07 May 2018 10:28
--- NOTE | 2018-05-07 14:13 | P.DS ---
DS: Providers Date of admission: 05/05/18 22:16 Primary care physician: No Primary Care Physician Consults: 05/05/18 20:26 Consult to Neurology Stat Consulting Provider: Santosh Miranda For STAT consult, spoke directly to:: Rajat Reason for Consultation: Brain Attack Notified:: Service Spoke with:: curtis CHELSEA re STAT consult, verified dr to /[facility] call center Date Notified:: 05/05/18 Time Notified:: 20:51 Ordering Provider: USMAN Brief History from admission: 52-yo M traveling from [place], with pmhx of DM2, CKD,severe arthritis with lower back nerve stimulator,HTN,Hyperlipidemia who presented to ER for evaluation of left facial weakness, and lt arm weakness and difficulty balance which he noted on waking up yesterday morning.He reportedly was running into things. No weakness in his legs. No changes in his speech or visual symptoms. Patient also reports lt nasal pimple for 2-3 days, associated with swelling on lower side of left face, and mild pain. No fever or chills. no discharge. No palpitations, dizziness,lightheadedness. He notes his blood sugar was high in 300's at home. He is on Insulin but does not know which type or his dose. He reports compliance to all his usual medication. ROS is negative except as stated above. On presentation in ER VSS, labs unremarkable except for mild hyponatremia, hyperglycemia 498mg/dl, Cr 2(has CKD). urine tox negative. CT head and CTA head/ neck all negative. Neurology consulted overnight. PSHX-H/o nerve stimulator insertion in the back. Family hx-father had CAD,CHF,DM. H/o Kidney disease in family. DS: Diagnosis Discharge Diagnosis (1) Stroke: Status: Acute (2) Weakness: Status: Acute (3) Type 2 diabetes mellitus with hyperglycemia: Status: Acute (4) Chronic kidney disease (CKD): Status: Acute DS: Summary ISSUES ADDRESSED DURING THIS HOSPITALIZATION: 1.Possible stroke after having a couple of days lt sided lower facial weakness, left side weakness and gait imbalance. CT head/CTA head/neck were negative. Patient was seen by the neurologist. Symptoms improved so likely may have had a TIA. MRI brain was ordered--patient says he cannot do MRI since he has a nerve stimulator.LDL within acceptable limits.2D echo was unremarkable. Patient was continued on Plavix and Statin. obtain , PT/OT. 2.Lt nasal papule with mild lower facial cellulitis--started on Doxycycline PO 3.Uncontrolled DM 2-- A1C 12.1% blood glucose was in 200's range and he was maintained on sliding scale insulin while in house, patient does not know his home insulin regimen,but plans on resuming on discharge. He has been counseled on compliance. DM diet. PT/OT worked with the patient during this hospitalization. Patient advised to follow up with his PCP within 1 week for re-evaluation. Time Spent with Patient Total time spent providing and/or coordinating discharge services: Quality: VTE Deep Vein Thrombosis/Pulmonary Embolism Present on Admission: No Results Labs on day of discharge: Labs from last 24 hours 05/07/18 05/07/18 05/06/18 12:03 07:56 23:02 POC Glucose 266 H 230 H 259 H 05/06/18 16:56 POC Glucose 192 H Impressions ITS Impressions Chest X-Ray 05/05/18 20:26 CONCLUSION: 1. No acute cardiopulmonary disease. Head CT 05/05/18 20:26 CONCLUSION: 1. No acute intracranial abnormality. Report was called by Dr. Barnett to Dr. Bland at 9:09 PM.] Head CTA 05/05/18 20:26 CONCLUSION: 1. Negative CTA of the head. Specifically, no evidence for large vessel occlusion. Report was called by Dr. Barnett to Dr. Earl at 9:26 PM.] Neck CTA 05/05/18 20:26 CONCLUSION: 1. No significant carotid or vertebral artery flow limiting lesion. Discharge Plan Discharge Disposition Patient Disposition: Discharge Home Discharge Condition Condition: Stable Discharge Order Discharge Orders: Discharge Order (Routine); Ordered 05/07/18 Ordered By: Scooby Castro Discharge Details Anticipated Discharge Date: 05/07/18 Physicians Team Primary Care Provider: Primary Care Rebecca,Leah Attending Provider: Scooby Castro Other Providers: Santosh Miranda Rxs /Orders / Referrals /Forms Prescriptions: New clopidogrel [Plavix] 75 mg Tablet 75 mg PO DAILY Qty: 30 RF: 0 Continue sertraline 50 mg Tablet 50 mg PO DAILY RF: 0 atorvastatin 80 mg Tablet 80 mg PO DAILY RF: 0 gabapentin 600 mg Tablet 600 mg PO BID RF: 0 paroxetine HCl 20 mg Tablet 20 mg PO DAILY RF: 0 topiramate [Topamax] 50 mg Tablet 50 mg PO BID RF: 0 losartan 50 mg Tablet 50 mg PO DAILY RF: 0 nortriptyline 25 mg Capsule 25 mg PO BID RF: 0 esomeprazole magnesium 40 mg Capsule,Delayed Release(Dr/Ec) 40 mg PO DAILY RF: 0 Referrals: Primary Care Physici,No [Primary Care Provider] - See Instructions ( Please call the physician's office to book the appointment ) Discharge Instructions Patient Printed Instructions: Doxycycline (By mouth), Clopidogrel (By mouth), Transient Ischemic Attack (GEN), Heart Healthy Diet (GEN), Chronic Hypertension (GEN), Diabetic Kidney Disease (GEN), Blood Thinners (GEN), Diabetes and Nutrition (GEN) Additional Instructions: AIC WAS 12.1 HERE. ABSOLUTELY MUST WORK ON GETTING BETTER CONTROL OF YOUR DIABETES BOTH WITH MEDICATIONS AND ALSO YOUR DIETARY INTAKE Post Discharge Care Plan Care Plan Goals: Your Health Problems: TIA. UNCONTROLLED DIABETES. NASAL POLYP. Goals to Promote Your Health: * To prevent worsening of your condition * To maintain your health at the optimal level Directions to Meet Your Goals: * Take your medications as prescribed * Follow your dietary instruction * Follow activity as directed * Keep your appointments as scheduled * Take your immunizations and boosters as scheduled * If your symptoms worsen call your PCP * If no PCP go to Urgent Care or Emergency Room Smoking is dangerous to your health. Avoid second hand smoke. You may reach the 24-hour crisis hotline for domestic abuse at . Status ED Status: Left Department Discharge Information Discharge Date/Time: 05/07/18 15:04
--- NOTE | 2018-05-08 00:38 | ECG ---
Date Performed: 05/05/2018 Time Performed: 20:34:47 PTAGE: 52 years EKG: Sinus rhythm NORMAL ECG INTERPRETATION BASED ON A DEFAULT AGE OF 39 YEARS NO PREVIOUS TRACING DOCTOR: Stanley Sanders Interpretating Date/Time 05/08/2018 00:36:37
== END 2018-05-07 15:04 | disposition home or self-care (01) | DRG 69 ==
LOC: PHED 20:08 → PHEDA 22:16 → PH3 05-06 00:21
PROVIDERS: ADMIT Hospitalist; ATTEND Hospitalist
DX: N18.3 Chronic kidney disease, stage 3 (moderate); G45.9 Transient cerebral ischemic attack, unspecified; Z88.6 Allergy status to analgesic agent; Z96.89 Presence of other specified functional implants; G81.94 Hemiplegia, unspecified affecting left nondominant side; Z79.4 Long term (current) use of insulin; E11.22 Type 2 diabetes mellitus with diabetic chronic kidney disease; Z79.02 Long term (current) use of antithrombotics/antiplatelets; E11.65 Type 2 diabetes mellitus with hyperglycemia; L03.211 Cellulitis of face; E78.5 Hyperlipidemia, unspecified; M19.90 Unspecified osteoarthritis, unspecified site; R29.810 Facial weakness; E66.9 Obesity, unspecified; Z68.37 Body mass index [BMI] 37.0-37.9, adult; R26.2 Difficulty in walking, not elsewhere classified; I12.9 Hypertensive chronic kidney disease with stage 1 through stage 4 chronic kidney disease, or unspecified chronic kidney disease
CPT/HCPCS: 70450; 70496; 70498; 71010; 71045; 80048; 80061; 80307; 81001; 82550; 82565; 82948; 82962; 83036; 84484; 85025; 85384; 85610; 85730; 86850; 86900; 86901; 90761; 90774; 92522; 93005; 93306; 96361; 96374; 97161; 97166; 99285; C8952; G8999; G9158; G9186; J1644; J1815; J7030; J7040; J7050; Q9967